=== PATIENT | male | born 1970 | race Caucasian/White ===

== ENCOUNTER 2016-10-29 16:46 | Emergency (ER) | payer OTHER ==
[~2016-10-29 16:46] MED LIST: ABILIFY2 MG PO; ATENOLOL25 MG PO; ATIVAN2 M1 PO; DIOVAN80 M1 PO; FLEXERIL10 MG PO; FLOXIN OTIC5 ML AD; HYDROCODON-ACE1 EAC7 PO; K-DUR20 ME2 PO; LEXAPRO20 MG PO; LIPITOR PO; MEDROL DOSEPAK4 MG PO; NEXIUM20 MG PO; OXYCONTIN30 MG PO
== END 2016-10-29 16:55 | disposition home or self-care (01) ==
LOC: SED 16:46
DX: H92.03 Otalgia, bilateral (principal); F17.210 Nicotine dependence, cigarettes, uncomplicated
CPT/HCPCS: 99282